=== PATIENT | female | born 1975 | race Caucasian/White ===

== ENCOUNTER 2018-08-28 17:42 | Emergency (ER) | payer BC ==
--- OUTSIDE RECORDS SUMMARY | 2018-08-28 18:02 | XMS REPORT | Continuity of Care Document ---
:1975 External Reference #:[id number] Author Name GretaalphonseJuvencio Cely Care Team Providers Name Role Phone Abi Chacon NP Care Team Information Mid Level Business Analyst Unavailable Vikash Sepulveda MD Primary Care Physician Unavailable Payers Date Identification Numbers Payment Provider Subscriber Effective: 2017 Policy Number: [id number] [employer] Ze Leon PayID: [id number] [address] [address] [place] [address] Advance Directives Description No Information Available Problems Description No Information Family History Date Family Member(s) Observation Comments Father Hypertension Mother due to Leukemia () Paternal Grandmother Hypercholesterolemia Maternal Grandfather Colon Cancer Social History Type Date Description Comments Sex Unknown Lives With Son Tobacco Use Start: Unknown Never Smoked Cigarettes Tobacco Use Start: Unknown Patient has never smoked Smoking Status Reviewed: 08/28/18 Patient has never smoked Exercise Exercises regularly walks 45 min. daily Type/Frequency Allergies, Adverse Reactions, Alerts Date Description Reaction Status Severity Comments 08/28/2018 Zyrtec Active Medications Description No Active Medications Immunizations Description No Information Available Vital Signs Date Vital Result Comment 08/28/2018 2:52pm Height 68.25 inches 5'8.25" Weight 155.50 lb Heart Rate 73 /min BP Systolic 104 mmHg BP Diastolic 67 mmHg O2 % BldC Oximetry 99 % BMI (Body Mass Index) 23.5 kg/m2 Last Menstrual Period [id number] Results Description No Information Available Procedures Description No Information Available Encounters Type Date Location Provider Dx Diagnosis Office Visit 11/20/2017 [facility] Brian Resendiz MD L82.1 Other seborrheic 3:20p [place] keratosis D23.39 Other benign neoplasm of skin of other parts of face D18.01 Hemangioma of skin and subcutaneous tissue Plan of Treatment 08/28/2018 - Hugh Carias.P.Z01.411 Encounter for gynecological examination ( general) (routine)Comments:Will request pap results (including HPV testing) .N39.3 Stress incontinence (female) (male)Comments:Hayde PT [id number] Dizziness and giddinessComments:Patient presents with third episode of dizziness. She has a mild feeling of pressure in her temples. She has nystagmus on left gaze, no neurological deficits. I suspect this is related to a peripheral cause (vestibulitis, BPPV) but given new onset and associated with pressure in temples, plan to send to ER for evaluation.Dr. Sepulveda's office updated and agreed with plan of care.
[2018-08-28] MEDS ORDERED: NS 0.9% 1000 ML** 1,000 ML IV ONE (18:28)
[2018-08-28] MEDS ORDERED: Meclizine TAB* 12.5 MG PO ONE (18:28)
[2018-08-28] MEDS ORDERED: LORazepam TAB(*) 0.5 MG PO ONE (18:28)
[2018-08-28] MEDS ORDERED: Ondansetron INJ* 2 MG/ML VIAL IV ONE (18:28)
--- NOTE | 2018-08-28 18:31 | ED ---
Dizziness - HPI Summary HPI Summary: Patient is a 43 y/o F presenting to ED with complaints of room-spinning dizziness, AUSTIN pressure, and nausea. Patient states that Sx onset this morning. She states that she has been experiencing similar episodes since June, notes that she also experienced vomiting with previous episodes. No chest pain, no palpitations, no SOB, no blurry vision is reported. Patient notes that her neck feels tense but otherwise denies pain. She denies post nasal drip at present, recent common colds, allergies, and sinus pressure. Patient was seen by PCP Verena Tracy today, it was recommended that she come to ED for further workup. LNMP was 08/04/18. On triage, pain is rated 6/10. Nothing is noted to aggravate/alleviate Sx. Home medications and allergies are reviewed. - History Of Current Complaint Chief Complaint: EDDizziness Stated Complaint: DIZZINESS Time Seen by Provider: 08/28/18 18:20 Hx Obtained From: Patient Onset/Duration: Still Present Timing: Weeks - episodes onset in June Severity Currently: Moderate - 6/10 Character: Room Spinning, Dizzy Aggravating Factor(s): Nothing Alleviating Factor(s): Nothing Associated Signs And Symptoms: Positive: Nausea, Other: - AUSTIN endorsed, no neck pain, no post-nasal drip. Negative: Chest Pain, SOB, Unsteady Gait - Allergies/Home Medications Allergies/Adverse Reactions: Allergies Allergy/AdvReac Type Severity Reaction Status Date / Time Cetirizine [From [facility]] Allergy Severe Rash Verified 06/22/13 21:37 NUTS Allergy Severe Anaphylatic Uncoded 06/22/13 21:37 Shock PEANUTS Allergy Severe Anaphylatic Uncoded 06/22/13 21:37 Shock PMH/Surg Hx/FS Hx/Imm Hx Endocrine/Hematology History: Denies: Hx Diabetes, Hx Thyroid Disease Cardiovascular History: Denies: Hx Hypertension Respiratory History: Denies: Hx Asthma, Hx Chronic Obstructive Pulmonary Disease (COPD) GI History: Denies: Hx Ulcer Infectious Disease History: No Infectious Disease History: Denies: Hx Hepatitis, Hx Human Immunodeficiency Virus (HIV), Traveled Outside the [place] in Last 30 Days - Family History Known Family History: Positive: Hypertension - father Negative: Diabetes - Social History Alcohol Use: None Substance Use Type: Reports: None Smoking Status (MU): Never Smoked Tobacco Review of Systems Negative: Blurred Vision Negative: Chest Pain Negative: Shortness Of Breath Positive: Vomiting - with previous episodes, Nausea Musculoskeletal: Other - NEGATIVE - NECK PAIN Neurological: Other - POSITIVE - DIZZINESS; NEGATIVE - UNSTEADY GAIT Positive: Headache All Other Systems Reviewed And Are Negative: Yes Physical Exam - Summary Physical Exam Summary: VITAL SIGNS: Reviewed. GENERAL: Patient is a well-developed and nourished female who is lying comfortable in the stretcher. Patient is not in any acute respiratory distress. HEAD AND FACE: No signs of trauma. No ecchymosis, hematomas or skull depressions. No sinus tenderness. EYES: PERRLA, EOMI x 2, No injected conjunctiva, no nystagmus. No photophobia. EARS: Hearing grossly intact. Ear canals and tympanic membranes are within normal limits. MOUTH: Oropharynx within normal limits. NECK: Supple, trachea is midline, no adenopathy, no JVD, no carotid bruit, no c- spine tenderness, neck with full ROM. No meningeal signs, no Kernig's or brudzinskis signs. CHEST: Symmetric, no tenderness at palpation LUNGS: Clear to auscultation bilaterally. No wheezing or crackles. CVS: Regular rate and rhythm, S1 and S2 present, no murmurs or gallops appreciated. ABDOMEN: Soft, non-tender. No signs of distention. No rebound no guarding, and no masses palpated. Bowel sounds are normal. EXTREMITIES: FROM in all major joints, no edema, no cyanosis or clubbing. NEURO: Alert and oriented x 3. No acute neurological deficits. Speech is normal and follows commands. SKIN: Dry and warm GCS: 15 Triage Information Reviewed: Yes Vital Signs On Initial Exam: Initial Vitals Temp Pulse Resp BP Pulse Ox 98.8 F 70 18 142/83 98 08/28/18 17:48 08/28/18 17:48 08/28/18 17:48 08/28/18 17:48 08/28/18 17:48 Vital Signs Reviewed: Yes Diagnostics - Vital Signs Vital Signs Temp Pulse Resp BP Pulse Ox 08/28/18 17:48 98.8 F 70 18 142/83 98 - Laboratory Result Diagrams: 08/28/18 18:50 08/28/18 18:50 Lab Statement: Any lab studies that have been ordered have been reviewed, and results considered in the medical decision making process. - Radiology CXR Radiology Interpretation Completed By: ED Physician Summary of Radiographic Findings: No acute process, pending offical report. - CT brain ct CT Interpretation Completed By: Radiologist Summary of CT Findings: IMPRESSION: No acute intracranial abnormality. This report was reviewed by ED physician. - EKG 1939 Cardiac Rate: NL - rate of 68 BPM EKG Rhythm: Sinus Rhythm EKG Comparison: No Significant Change - compared to EKG from 12/09/14 Summary of EKG Findings: EKG showed sinus rhythm with rate of 68 BPM, no ST elevation, no significant change compared to 12/09/14 EKG. Re-Evaluation - Re-Evaluation First Eval Re-Evaluation Time: 20:16 Change: Improved Comment: In the ED course the patient was given IV fluids, meclizine and Ativan. After these medications was given symptoms have significantly improved. Therefore the patient will be discharged home with follow-up with primary care physician. The patient is hemodynamically stable. Before discharge patient has no acute neurological focal deficits. At this point I discussed all the findings and test results with the patient and patient. They were instructed to return to the emergency room immediately if any of the symptoms return or worsens. They understand and agree. Neurological exam before discharge: Patient is alert and oriented x 3. No acute neurological deficits. Patient vital signs are stable. Patient is to follow up with PCP in the next 2 3 days. They understand and agree. Plan of care was discussed with the patient and patient understands and agrees with the plan of care. All questions were answered at patient satisfaction. There were no further complaints or concerns. Dizzy Course/Dx - Course Assessment/Plan: Patient is a 43 y/o F presenting to ED with complaints of room- spinning dizziness, AUSTIN pressure, and nausea. Patient states that Sx onset this morning. She states that she has been experiencing similar episodes since June, notes that she also experienced vomiting with previous episodes. No chest pain, no palpitations, no SOB, no blurry vision is reported. Patient notes that her neck feels tense but otherwise denies pain. She denies post nasal drip at present, recent common colds, allergies, and sinus pressure. Patient was seen by PCP Verena Tracy today, it was recommended that she come to ED for further workup. LNMP was 08/04/18. Blood work without any significant abnormality, urinalysis is negative for UTI however the urine is contaminated therefore we will send for cultures. Urine toxicology is negative. Head CT impression: no acute intracranial pathology. X-ray impression: No acute process. In the ED course the patient was given IV fluids, meclizine and Ativan. After these medications was given symptoms have significantly improved. Therefore the patient will be discharged home with follow-up with primary care physician. The patient is hemodynamically stable. Before discharge patient has no acute neurological focal deficits. At this point I discussed all the findings and test results with the patient and patient. They were instructed to return to the emergency room immediately if any of the symptoms return or worsens. They understand and agree. Neurological exam before discharge: Patient is alert and oriented x 3. No acute neurological deficits. Patient vital signs are stable. Patient is to follow up with PCP in the next 2 3 days. They understand and agree. Plan of care was discussed with the patient and patient understands and agrees with the plan of care. All questions were answered at patient satisfaction. There were no further complaints or concerns. - Diagnoses Differential Diagnosis/HQI/PQRI: Benign Paroxysmal Positional Vertigo, CVA, Meniere's Disease, Transient Ischemic Attack Provider Diagnoses: Vertigo Discharge - Sign-Out/Discharge Documenting (check all that apply): Patient Departure - discharge Patient Received Moderate/Deep Sedation with Procedure: No - NO PROCEDURES DONE - Discharge Plan Condition: Stable Disposition: HOME Prescriptions: Meclizine TAB* [Antivert 12.5 TAB*] 25 mg PO TID PRN #30 tab PRN Reason: Vertigo Patient Education Materials: Vertigo (ED) Referrals: Vikash Sepulveda MD [Primary Care Provider] - 3 Days Additional Instructions: RETURN TO EMERGENCY DEPARTMENT FOR ANY NEW OR WORSENING SYMPTOMS. FOLLOW UP WITH PRIMARY CARE PHYSICIAN WITHIN THREE DAYS. - Billing Disposition and Condition Condition: STABLE Disposition: Home - Attestation Statements Document Initiated by Diego: Yes Documenting Scribe: SAFIA HASSAN Provider For Whom Diego is Documenting (Include Credential): CHAIM ANDREWS MD Scribe Attestation: SAFIA Rankin scribed for CHAIM ANDREWS MD on 08/29/18 at 1117. Scribe Documentation Reviewed: Yes Provider Attestation: The documentation as recorded by the SAFIA cooper accurately reflects the service I personally performed and the decisions made by me, CHAIM ANDREWS MD Status of Diego Document: Viewed
[2018-08-28 19:03] LABS: ABS Basophils 0 10^3/ul (0-0.2); ABS Eosinophils 0.1 10^3/ul (0-0.6); ABS Lymphocytes 2.3 10^3/ul (1.0-4.8); ABS Monocytes 0.6 10^3/ul (0-0.8); ABS Neutrophils 4.8 10^3/ul (1.5-7.7); ABS Nucleated RBC 0 10^3/ul; Eosinophil % 1.4 %; Hematocrit 39 % (35-47); Hemoglobin 13.4 g/dl (12.0-16.0); Lymphocyte % 29.5 %; Mean Corpuscular HGB Conc 34 g/dl (31-36); Mean Corpuscular Hemoglobin 31 pg (27-31); Mean Corpuscular Volume 92 fL (80-97); Mean Platelet Volume 9.4 fL (7.4-10.4); Nucleated Red Blood Cells % 0; Platelet Count 198 10^3/ul (150-450); Red Blood Count 4.28 10^6/ul (4.00-5.40); Red Cell Distribution Width 14 % (10.5-15); White Blood Count 7.8 10^3/ul (3.5-10.8)
[2018-08-28 19:22] LABS: Urine Appearance Clear; Urine Bacteria 2+ (Absent); Urine Bilirubin Negative (Negative); Urine Blood 1+ (Negative); Urine Color Straw; Urine Glucose Negative (Negative); Urine Ketones Negative (Negative); Urine Nitrite Negative (Negative); Urine Protein Negative (Negative); Urine Red Blood Cell Trace(0-2/hpf) (Absent); Urine Specific Gravity 1.003 (1.010-1.030); Urine Squamous Epithelial Cell Present (Absent); Urine Urobilinogen Negative (Negative); Urine White Blood Cell Trace(0-5/hpf) (Absent)
[2018-08-28 19:29] LABS: HCG Pregnancy < 0.60 mIU/mL
[2018-08-28 19:36] LABS: Barbiturates Urine Screen None Detected (None Detect); Benzodiazepine Urine Screen None Detected (None Detect); Urine Cannabinoids Screen None Detected (None Detect)
[2018-08-28 19:38] LABS: ALT 16 U/L (7-52); AST 17 U/L (13-39); Albumin 4.5 g/dL (3.2-5.2); Albumin/Globulin Ratio 1.7 (1-3); Alkaline Phosphatase 76 U/L (34-104); Anion Gap 6 mmol/L (2-11); BUN/Creatinine Ratio 17.6 (8-20); Blood Urea Nitrogen 13 mg/dL (6-24); C Reactive Protein < 1.00 mg/L (<8.01); CO2 Carbon Dioxide 26 mmol/L (22-32); Calcium 9.9 mg/dL (8.6-10.3); Chloride 107 mmol/L (101-111); EGFR African American 102.7 (>60); EGFR Non-African American 84.9 (>60); Globulin 2.7 g/dL (2-4); Glucose 73 mg/dL (70-100); Magnesium 2.2 mg/dL (1.9-2.7); Potassium 3.5 mmol/L (3.5-5.0); Sodium 139 mmol/L (135-145); Total Protein 7.2 g/dL (6.4-8.9)
[2018-08-28 19:47] LABS: TSH (Thyroid Stimulating Horm) 1.43 mcIU/mL (0.34-5.60)
[2018-08-28 20:31] VITALS: BP 121/68
== END 2018-08-28 20:29 | disposition home or self-care (01) ==
LOC: ED 17:42
DX: R42 Dizziness and giddiness (principal); R11.2 Nausea with vomiting, unspecified; R51 Headache
CPT/HCPCS: 36415; 70450; 71046; 80053; 80307; 81003; 81015; 83605; 83735; 83880; 84443; 84484; 84702; 85025; 86140; 87086; 93005; 96361; 96374; 99281; A9270-GY; J2405

== ENCOUNTER 2018-10-10 10:28 | Emergency (ER) | payer BC ==
[2018-10-10] MEDS ORDERED: NS 0.9% 1000 ML** 1,000 ML IV ONE (11:11)
[2018-10-10] MEDS ORDERED: Ondansetron INJ* 2 MG/ML VIAL IV ONE (11:11)
[2018-10-10] MEDS ORDERED: Meclizine TAB* 12.5 MG PO ONE (11:11)
[2018-10-10 11:35] LABS: ABS Basophils 0 10^3/ul (0-0.2); ABS Eosinophils 0 10^3/ul (0-0.6); ABS Lymphocytes 0.5 10^3/ul (1.0-4.8); ABS Monocytes 0.2 10^3/ul (0-0.8); ABS Neutrophils 8.8 10^3/ul (1.5-7.7); ABS Nucleated RBC 0 10^3/ul; Eosinophil % 0.1 %; Hematocrit 40 % (33-41); Hemoglobin 13.6 g/dL (12.0-16.0); Lymphocyte % 5.4 %; Mean Corpuscular HGB Conc 34 g/dL (31-36); Mean Corpuscular Hemoglobin 31 pg (27-31); Mean Corpuscular Volume 91 fL (80-97); Mean Platelet Volume 9.1 fL (7.4-10.4); Nucleated Red Blood Cells % 0; Platelet Count 199 10^3/uL (150-450); Red Cell Distribution Width 14 % (10.5-15); White Blood Count 9.5 10^3/uL (3.5-10.8)
[2018-10-10 11:52] LABS: ALT 17 U/L (7-52); AST 17 U/L (13-39); Albumin 4.4 g/dL (3.2-5.2); Albumin/Globulin Ratio 1.5 (1-3); Alkaline Phosphatase 70 U/L (34-104); Anion Gap 7 mmol/L (2-11); BUN/Creatinine Ratio 16.2 (8-20); Blood Urea Nitrogen 12 mg/dL (6-24); C Reactive Protein < 1.00 mg/L (<8.01); CO2 Carbon Dioxide 22 mmol/L (22-32); Calcium 10.1 mg/dL (8.6-10.3); Chloride 108 mmol/L (101-111); EGFR African American 102.7 (>60); EGFR Non-African American 84.9 (>60); Globulin 2.9 g/dL (2-4); Glucose 111 mg/dL (70-100); Potassium 3.7 mmol/L (3.5-5.0); Sodium 137 mmol/L (135-145); Total Protein 7.3 g/dL (6.4-8.9)
--- NOTE | 2018-10-10 12:50 | ED ---
Dizziness - HPI Summary HPI Summary: This is a 43 yo F with a recent history of dizziness which she describes as room spinning, head pressure bilaterally to the temporal sides and nausea and vomiting. She states she had this similar episode weeks weeks ago and was seen in the ED. She at that time had all the symptoms except for the vomiting. She states this would is acute onset this morning when awakening having severe dizziness, nausea and 2 episodes of vomiting. She states she has meclizine at home, but was unable to take it due to her vomiting. She has also been seen by Dr. Sepulveda twice for same and he is given her prescriptions which she states she has not taken because "I don't feel comfortable taking medicine unless I know what is causing this." She has had a CT as well as MRI. She was also prescribed Zofran, but has not picked this medication up. She endorses bilateral neck pain and photophobia. Denies neck stiffness. Patient remains able to rotate about the neck. She denies any headache otherwise. Denies any weakness. Denies any SOB or CP. - History Of Current Complaint Chief Complaint: EDDizziness Stated Complaint: POSSIBLE VERTIGO Time Seen by Provider: 10/10/18 10:40 Hx Obtained From: Patient Timing: Seconds Severity Currently: Mild Aggravating Factor(s): Nothing Alleviating Factor(s): Nothing Associated Signs And Symptoms: Positive: Nausea, Vomiting - Risk Factors Cardiac Risk Factors: Negative CVA Risk Factor: Negative - Allergies/Home Medications Allergies/Adverse Reactions: Allergies Allergy/AdvReac Type Severity Reaction Status Date / Time cetirizine [From [facility]] Allergy Severe Rash Verified 10/10/18 10:34 NUTS Allergy Severe Anaphylatic Uncoded 09/23/18 14:09 Shock PEANUTS Allergy Severe Anaphylatic Uncoded 09/23/18 14:09 Shock Home Medications: Home Medications Nabumetone 500 mg PO BID 10/10/18 [History Confirmed 10/10/18] Orphenadrine Citrate [Orphenadrine Citrate ER] 100 mg PO BID 10/10/18 [History Confirmed 10/10/18] PMH/Surg Hx/FS Hx/Imm Hx Previously Healthy: Yes Endocrine/Hematology History: Denies: Hx Diabetes, Hx Thyroid Disease Cardiovascular History: Denies: Hx Hypertension, Hx Pacemaker/ICD Respiratory History: Denies: Hx Asthma, Hx Chronic Obstructive Pulmonary Disease (COPD) GI History: Denies: Hx Ulcer History: Denies: Hx Renal Disease Sensory History: Denies: Hx Hearing Aid Psychiatric History: Denies: Hx Panic Disorder - Surgical History Surgery Procedure, Year, and Place: DENIES - Immunization History Hx Pertussis Vaccination: No Immunizations Up to Date: Yes Infectious Disease History: No Infectious Disease History: Denies: Hx Hepatitis, Hx Human Immunodeficiency Virus (HIV), Traveled Outside the [place] in Last 30 Days - Family History Known Family History: Positive: Hypertension - father Negative: Diabetes - Social History Occupation: Employed Full-time Lives: With Family Alcohol Use: None Hx Substance Use: No Substance Use Type: Reports: None Hx Tobacco Use: No Smoking Status (MU): Never Smoked Tobacco Review of Systems Constitutional: Negative Negative: Fever, Chills, Fatigue, Skin Diaphoresis Negative: Epistaxis, Dental Pain Negative: Palpitations, Chest Pain Positive: Vomiting, Nausea. Negative: Abdominal Pain, Diarrhea Genitourinary: Negative Positive: no symptoms reported, see HPI Negative: Myalgia Neurological: Other - room spinning Positive: Headache All Other Systems Reviewed And Are Negative: Yes Physical Exam Triage Information Reviewed: Yes Vital Signs On Initial Exam: Initial Vitals Temp Pulse Resp BP Pulse Ox 96.9 F 89 16 111/90 100 10/10/18 10:31 10/10/18 10:31 10/10/18 10:31 10/10/18 10:31 10/10/18 10:31 Vital Signs Reviewed: Yes Appearance: Positive: Well-Appearing, Well-Nourished Skin: Positive: Warm, Skin Color Reflects Adequate Perfusion Head/Face: Positive: Normal Head/Face Inspection Eyes: Positive: EOMI, Conjunctiva Clear, Other: - no nystagmus Neck: Positive: No Lymphadenopathy Respiratory/Lung Sounds: Positive: Clear to Auscultation, Breath Sounds Present Cardiovascular: Positive: RRR, Pulses are Symmetrical in both Upper and Lower Extremities Musculoskeletal: Positive: Strength/ROM Intact Neurological: Positive: Sensory/Motor Intact, Alert, Oriented to Person Place, Time, CN Intact II-III, Reflexes Intact, Normal Gait, Speech Normal, Other - no nystagmus noted. Negative: Facial Droop, Slurred Speech, Dysphagia, Rhomberg, Heel to Toe, Finger to Nose Psychiatric: Positive: Affect/Mood Appropriate AVPU Assessment: Alert Diagnostics - Vital Signs Vital Signs Temp Pulse Resp BP Pulse Ox 10/10/18 12:17 79 24 123/64 100 10/10/18 12:00 74 23 99 10/10/18 11:53 96 13 115/84 10/10/18 11:52 98 115/84 10/10/18 11:51 80 20 112/79 99 10/10/18 11:50 73 14 115/75 99 10/10/18 11:49 72 115/75 10/10/18 11:47 79 16 123/70 97 10/10/18 11:17 75 11 117/73 100 10/10/18 11:00 76 9 100 10/10/18 10:47 76 8 128/79 100 10/10/18 10:46 14 10/10/18 10:31 96.9 F 89 16 111/90 100 - Laboratory Lab Results: Lab Results 10/10/18 10/10/18 Range/Units 11:24 11:24 WBC 9.5 (3.5-10.8) 10^3/uL RBC 4.40 (3.70-4.87) 10^6 /uL Hgb 13.6 (12.0-16.0) g/dL Hct 40 (33-41) % MCV 91 (80-97) fL MCH 31 (27-31) pg MCHC 34 (31-36) g/dL RDW 14 (10.5-15) % Plt Count 199 (150-450) 10^3/uL MPV 9.1 (7.4-10.4) fL Neut % (Auto) 92.0 % Lymph % (Auto) 5.4 % [place] % (Auto) 2.4 % Eos % (Auto) 0.1 % Baso % (Auto) 0.1 % Absolute Neuts (auto) 8.8 H (1.5-7.7) 10^3/ul Absolute Lymphs (auto) 0.5 L (1.0-4.8) 10^3/ul Absolute Monos (auto) 0.2 (0-0.8) 10^3/ul Absolute Eos (auto) 0 (0-0.6) 10^3/ul Absolute Basos (auto) 0 (0-0.2) 10^3/ul Absolute Nucleated RBC 0 10^3/ul Nucleated RBC % 0 ESR Pending Sodium 137 (135-145) mmol/L Potassium 3.7 (3.5-5.0) mmol/L Chloride 108 (101-111) mmol/L Carbon Dioxide 22 (22-32) mmol/L Anion Gap 7 (2-11) mmol/L BUN 12 (6-24) mg/dL Creatinine 0.74 (0.51-0.95) mg/dL Est GFR ( Amer) 102.7 (>60) Est GFR (Non-Af Amer) 84.9 (>60) BUN/Creatinine Ratio 16.2 (8-20) Glucose 111 H (70-100) mg/dL Calcium 10.1 (8.6-10.3) mg/dL Total Bilirubin 0.50 (0.2-1.0) mg/dL AST 17 (13-39) U/L ALT 17 (7-52) U/L Alkaline Phosphatase 70 (34-104) U/L C-Reactive Protein < 1.00 (<8.01) mg/L Total Protein 7.3 (6.4-8.9) g/dL Albumin 4.4 (3.2-5.2) g/dL Globulin 2.9 (2-4) g/dL Albumin/Globulin Ratio 1.5 (1-3) Result Diagrams: 10/10/18 11:24 10/10/18 11:24 Lab Statement: Any lab studies that have been ordered have been reviewed, and results considered in the medical decision making process. Dizzy Course/Dx - Course Course Of Treatment: During the course of treatment, the patient's evaluated for extreme room spinning dizziness, head pressure to the temporal area, N/V. She states she has had several scans, CT and most recent MRI as of 2 weeks ago. Everything was normal per patient. She was referred to a neurologist, but has not been able to get an appt. She was given zofran, fluids and meclizine during the course of treatment and states she feels much better. She will be DC 'd with vertigo and will f/u with neurology. She is OK with this plan and all questions answered by provider prior to discharge. - Diagnoses Differential Diagnosis/HQI/PQRI: Benign Paroxysmal Positional Vertigo, Labyrinthitis, Meniere's Disease, Vasovagal Reaction Provider Diagnoses: Vertigo Discharge - Sign-Out/Discharge Documenting (check all that apply): Patient Departure Patient Received Moderate/Deep Sedation with Procedure: No - Discharge Plan Condition: Stable Disposition: HOME Patient Education Materials: Vertigo (ED) Referrals: Vikash Sepulveda MD [Primary Care Provider] - José Ross MD [Medical Doctor] - Additional Instructions: Please follow-up with Dr. King Wei as needed for nausea/vomiting - Billing Disposition and Condition Condition: STABLE Disposition: Home
[2018-10-10 12:59] VITALS: BP 115/68
[2018-10-10 17:23] LABS: Erythrocyte Sed Rate 11 mm/Hr (0-20)
== END 2018-10-10 13:27 | disposition home or self-care (01) ==
LOC: ED 10:28
DX: R42 Dizziness and giddiness (principal); R11.2 Nausea with vomiting, unspecified; R51 Headache; M54.2 Cervicalgia; H53.149 Visual discomfort, unspecified; Z88.8 Allergy status to other drugs, medicaments and biological substances; Z91.018 Allergy to other foods; Z91.010 Allergy to peanuts; Z82.49 Family history of ischemic heart disease and other diseases of the circulatory system
CPT/HCPCS: 36415; 80053; 85025; 85652; 86140; 96374; 99283; A9270-GY; J2405